=== PATIENT | female | born 1985 | race Caucasian/White ===

== ENCOUNTER 2018-12-31 17:02 | Emergency (ER) | payer OTHER ==
[~2018-12-31] VITALS: Ht 154.9 cm; Wt 70.8 kg
[2018-12-31 17:10] VITALS: Ht 154.9 cm; Wt 70.8 kg
[2018-12-31 20:34] VITALS: BP 101/69
== END 2018-12-31 20:34 | disposition home or self-care (01) ==
LOC: ED 17:02
DX: J20.9 Acute bronchitis, unspecified (principal); Z88.0 Allergy status to penicillin
CPT/HCPCS: J7613